=== PATIENT | male | born 2000 | race Caucasian/White ===

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

== ENCOUNTER 2024-01-19 09:55 | Emergency (ER) | payer SELFPAY ==
[2024-01-19] MEDS: Ondansetron 4 MG Tab.DIS PO ONE (10:19)
[2024-01-19] MEDS: Ketorolac 30 MG/ML SDV IM ONE (10:19)
[2024-01-19] MEDS: Cyclobenzaprine 10 MG Tab PO ONE (10:19)
== END 2024-01-19 11:22 | disposition home or self-care (01) ==
LOC: MW.ED 09:55
DX: S09.90XA Unspecified injury of head, initial encounter (principal); Z75.8 Other problems related to medical facilities and other health care; X58.XXXA Exposure to other specified factors, initial encounter
CPT/HCPCS: 70450; 96372; 99283; A9270; J1885

== ENCOUNTER 2025-05-02 07:46 | Day surgery (SDC) | payer BC ==
[2025-05-02] MEDS: Lactated Ringers 1,000 ML IV SCH (08:20)
[2025-05-02] MEDS ORDERED: propofoL 500 MG/50 ML 50 ML ONE (08:24)
[2025-05-02] MEDS ORDERED: Ondansetron 4 MG/2 ML SDV ONE (08:25)
[2025-05-02] MEDS ORDERED: Ketamine HCL/NACL, ISO-OSM 50 MG/5 ML Syringe ONE (08:49)
[2025-05-02] MEDS ORDERED: Lactated Ringers 1,000 ML IV SCH (09:15)
== END 2025-05-02 10:00 | disposition home or self-care (01) ==
LOC: MW.SDS 07:46
PROVIDERS: ATTEND Surgery
DX: K29.50 Unspecified chronic gastritis without bleeding (principal); K31.89 Other diseases of stomach and duodenum; K20.0 Eosinophilic esophagitis; K21.9 Gastro-esophageal reflux disease without esophagitis; F17.210 Nicotine dependence, cigarettes, uncomplicated; Z79.899 Other long term (current) drug therapy
CPT/HCPCS: 43239; J1596; J2003; J2405; J2704; J7120; 00731; J3490